=== PATIENT | female | born 1955 | race Caucasian/White ===

== ENCOUNTER → 2020-09-19 | Day surgery (SDC) | payer OTHER ==
[~2020-09-19] MED LIST: AZITHROMYCIN250 MG PO; CEFDINIR300 MG PO; CERTAGEN1 EACH PO; CYMBALTA60 MG PO; DULOXETINE HCL30 MG PO; FLEXERIL5 MG PO; HCTZ25 MG PO; LOPRESSOR50 MG PO; LOVASTATIN10 MG PO; LOVAZA1 GM PO; METFORMIN HCL500 MG PO; MOBIC15 MG PO; NEURONTIN300 MG PO; PERCOCET 5-3251 EACH PO; PRINIVIL20 MG PO; VENTOLIN HFA IN18 GM INH; VITAMIN D3 PO; VITAMIN D310 MC3 PO
[2020-09-19 07:19] LABS: BUN/CREAT RATIO (CALC) 26.7 RATIO; CREATININE 0.6 mg/dL (0.51-0.95); POTASSIUM 3.6 mmol/L (3.5-5.1)
== END | disposition home or self-care (01) ==
LOC: FAS 06:14
PROVIDERS: Anesthesiology
DX: M16.11 Unilateral primary osteoarthritis, right hip (principal); K21.9 Gastro-esophageal reflux disease without esophagitis; F41.9 Anxiety disorder, unspecified; I10 Essential (primary) hypertension; E78.00 Pure hypercholesterolemia, unspecified; Z20.822 Contact with and (suspected) exposure to COVID-19; Z91.040 Latex allergy status; Z98.890 Other specified postprocedural states
CPT/HCPCS: 36415; 76000; 80048; J1040; J1885; J2704; J7120; Q9967

== ENCOUNTER → 2020-12-20 | Day surgery (SDC) | payer OTHER ==
[~2020-12-20] VITALS: Ht 157.5 cm; Wt 97.1 kg
== END | disposition home or self-care (01) ==
LOC: FAS 06:09
DX: M87.051 Idiopathic aseptic necrosis of right femur (principal); M16.11 Unilateral primary osteoarthritis, right hip; I10 Essential (primary) hypertension; E78.00 Pure hypercholesterolemia, unspecified; K21.9 Gastro-esophageal reflux disease without esophagitis; E11.9 Type 2 diabetes mellitus without complications; F41.9 Anxiety disorder, unspecified; Z91.040 Latex allergy status; Z79.84 Long term (current) use of oral hypoglycemic drugs; Z79.899 Other long term (current) drug therapy
CPT/HCPCS: 76000; 82962; J1040; J2001; J2250; J2704; J7120; Q9967

== ENCOUNTER 2021-02-11 11:10 | Emergency (ER) | payer OTHER ==
[2021-02-11 13:22] LABS: BASOPHIL 0.4 % (0-2); EOSINOPHIL 0.2 % (0-7); HCT 37.4 % (37.0-47.0); HGB 12.3 g/dl (12.5-16.0); LYMPHOCYTE 20.3 % (15-48); MCH 29.4 pg (25.0-31.0); MCHC 32.9 g/dL (32.0-36.0); MCV 89.5 fL (78.0-100.0); MONOCYTE 8.2 % (0-12); MPV 8.6 fL (6.0-9.5); NEUTROPHIL 70.3 % (41-80); NRBC 0; PLT 404 K/uL (150-400); RBC 4.18 M/uL (4.20-5.40); RDW 12.8 % (11.5-14.0); WBC 8.4 K/uL (4.0-10.5)
[2021-02-11 13:46] LABS: ALBUMIN 4.2 g/dL (3.4-5.0); BILIRUBIN - TOTAL 0.5 mg/dL (0.2-1.0); BUN/CREAT RATIO (CALC) 20.3 RATIO; CREATININE 0.69 mg/dL (0.51-0.95); GLOBULIN (CALCULATION) 4.1 g/dL; POTASSIUM 3.7 mmol/L (3.5-5.1); TOTAL PROTEIN 8.3 g/dL (6.4-8.2)
[2021-02-11 15:18] LABS: BILIRUBIN 1+ mg/dL (NEGATIVE); BLOOD 3+ Ery/uL (NEGATIVE); CLARITY CLEAR (CLEAR); COLOR YELLOW (YELLOW); GLUCOSE (U) NORMAL (NORMAL); LEUKOCYTES NEGATIVE Leu/uL (NEGATIVE); NITRITE NEGATIVE (NEGATIVE); PROTEIN 2+ mg/dL (NEGATIVE); SPECIFIC GRAVITY >=1.030 (1.001-1.030)
[2021-02-11 15:44] LABS: BACTERIA 1+; MUCOUS MODERATE
== END 2021-02-11 16:22 | disposition home or self-care (01) ==
LOC: FER 11:10
PROVIDERS: Nurse Practitioner Family
DX: E86.0 Dehydration (principal); R11.0 Nausea; R51.9 Headache, unspecified; E11.9 Type 2 diabetes mellitus without complications; I10 Essential (primary) hypertension; Z91.040 Latex allergy status
CPT/HCPCS: 36415; 70450; 71046; 80053; 81001; 85025; J1100; J1885; J2405; J7030

== ENCOUNTER → 2021-09-11 | Day surgery (SDC) | payer OTHER ==
[~2021-09-11] VITALS: Ht 157.5 cm; Wt 97.5 kg
[~2021-09-11] MED LIST changes: -LOVASTATIN10 MG PO; +LOVASTATIN40 MG PO; +MULTIVITAMIN1 EACH PO
== END | disposition home or self-care (01) ==
LOC: FAS 06:04
DX: M16.11 Unilateral primary osteoarthritis, right hip (principal)
CPT/HCPCS: 76000; J1040; J2250; J2405; J2704; J7120; Q9967